=== PATIENT | female | born 1955 | race Caucasian/White ===

== ENCOUNTER 2021-08-05 00:24 | Inpatient (IN) | payer MEDICARE, OTHER ==
[~2021-08-05] VITALS: Ht 152.4 cm; Wt 40.8 kg
--- NOTE | 2021-08-05 00:50 | NUR ---
TO ER BED 1. ALFIE FROM [facility] ON 5150 FOR GD AND DTO. NEEDS MED CLEARANCE. PT DENIES ANY CHEST PAIN OR SOB.
--- NOTE | 2021-08-05 00:53 | NUR ---
COVID ANTIGEN SWAB COLLECTED AND SENT TO LAB
--- NOTE | 2021-08-05 01:05 | NUR ---
PLANT OPERATOR/SHIFT SUPERVISOR AT PT'S BEDSIDE
[2021-08-05 01:29] LABS: BASOPHILS % (AUTO) 0.4 % (0.0-2.0); EOSINOPHILS % (AUTO) 1.3 % (0.0-6.0); HEMATOCRIT 37 % (33-45); HEMOGLOBIN 12.6 g/dL (11.5-14.8); LYMPHOCYTES # (AUTO) 0.8 K/uL (0.8-4.8); LYMPHOCYTES % (AUTO) 13.3 % (20.0-44.0); MEAN CORPUSCULAR HGB CONC 34 g/dl (31.0-36.0); MEAN CORPUSCULAR VOLUME 85 fL (82-100); MONOCYTES # (AUTO) 0.3 K/uL (0.1-1.30); MONOCYTES % (AUTO) 4.8 % (2.0-12.0); NEUTROPHILS # (AUTO) 4.9 K/uL (1.8-8.9); NEUTROPHILS % (AUTO) 80.2 % (43.0-81.0); PLATELET COUNT (AUTO) 248 K/uL (150-450); WHITE BLOOD COUNT (AUTO) 6.1 K/uL (4.3-11.0)
[2021-08-05 01:49] LABS: CALCIUM, SERUM 8.7 mg/dL (8.5-10.1); CARBON DIOXIDE 27 mmol/L (21-32); CHLORIDE 105 mmol/L (98-107); CREATININE 0.5 mg/dL (0.6-1.3); GLUCOSE 156 mg/dL (74-106); POTASSIUM 3.5 mmol/L (3.5-5.1); SODIUM SERUM 138 mmol/L (136-145); UREA NITROGEN, BLOOD 20 mg/dL (7-18)
[2021-08-05 01:55] LABS: ALANINE AMINOTRANSFERASE 22 U/L (12-78); ALBUMIN 3.2 g/dL (3.4-5.0); ALCOHOL, BLOOD < 3 mg/dL (0-0); ALKALINE PHOSPHATASE 73 U/L (46-116); ASPARTATE AMINOTRANSFERASE 19 U/L (15-37); BILIRUBIN,DIRECT 0.1 mg/dL (0.0-0.2); BILIRUBIN,TOTAL 0.3 mg/dL (0.2-1.0); TOTAL PROTEIN, SERUM 7.9 g/dL (6.4-8.2)
[2021-08-05 01:56] LABS: ACETAMINOPHEN 0 ug/ml (10-30)
--- NOTE | 2021-08-05 01:56 | NUR ---
URINE SAMPLE COLLECTED AND SENT TO LAB
[2021-08-05 02:21] LABS: BILIRUBIN,URINE NEGATIVE (NEGATIVE); COLOR,URINE YELLOW (YELLOW); LEUKOCYTE ESTERASE ,URINE LARGE (NEGATIVE); NITRITE, URINE NEGATIVE (NEGATIVE); PH,URINE 8.5 (5.0-8.0); PROTEIN,URINE 100 mg/dl (NEGATIVE); UGLUCOSE NEGATIVE (NEGATIVE); UROBILINOGEN,URINE 0.2 EU/dL (0.2)
[2021-08-05] MEDS ORDERED: NITROFURANTOIN/MONOHYDRATE MACROCRYSTALS 100 MG CAPSULE PO ONE (02:30)
[2021-08-05] MEDS ORDERED: NITROFURANTOIN/MONOHYDRATE MACROCRYSTALS 100 MG CAPSULE ONE (02:32)
--- NOTE | 2021-08-05 02:45 | NUR ---
ASSIGNED TO 218-1
--- NOTE | 2021-08-05 03:40 | NUR ---
MRSA SWAB COLLECTED AND SENT TO LAB
--- NOTE | 2021-08-05 03:51 | NUR ---
Report given to Sendy donahue for [place]
[2021-08-05 04:30] VITALS: BP 138/71
[2021-08-05] MEDS ORDERED: TEMAZEPAM 7.5 MG CAPSULE PO PRN (05:30)
[2021-08-05] MEDS ORDERED: LORAZEPAM 0.5 MG TABLET PO PRN (05:30)
[2021-08-05] MEDS ORDERED: ACETAMINOPHEN 325 MG TABLET PO PRN (05:30)
[2021-08-05] MEDS ORDERED: MAG HYDROX/AL HYDROX/SIMETH 30 ML UDC PO PRN (05:30)
[2021-08-05] MEDS ORDERED: MAGNESIUM HYDROXIDE 30 ML UDC PO PRN (05:30)
[2021-08-05] MEDS ORDERED: BLOOD SUGAR DIAGNOSTIC 1 EACH STRIP IN ONE (05:30)
[2021-08-05] MEDS ORDERED: DOCU100T2 PO (05:54)
[2021-08-05] MEDS ORDERED: ASCO500C18 PO (05:59)
[2021-08-05] MEDS ORDERED: ZINC220C6 PO (05:59)
[2021-08-05] MEDS ORDERED: HYDR200T81 PO (05:59)
[2021-08-05] MEDS ORDERED: VITAMIN D TABLET PO (05:59)
[2021-08-05 06:25] LABS: BACTERIA,URINE 2+ /HPF (None Seen); RBC,URINE TOO NUMEROUS TO COUN /HPF (0-2); SQUAMOUS EPITHELIAL CELL,UR Few /HPF (None Seen); URINE AMORPHOUS URATE Moderate /HPF (None Seen); WBC,URINE TOO NUMEROUS TO COUN /HPF (0-3)
--- NOTE | 2021-08-05 06:30 | NUR ---
RN GPS ADMISSION NOTE: RECEIVED 66 YRS OLD FEMALE PATIENT FROM THE [facility] ER, ORIGINALLY FROM [facility]. ARRIVAL TIME 0415. PATIENT ADMITTED ON A 5150 HOLD FOR DANGER TO OTHERS, GRAVELY DISABLED. PER 5150 HOLD, PATIENT WAS TALKING NON STOP AND PATIENT REPORTED THAT SHE WAS UPSET AND AGITATED BECAUSE THEY CLOSED THE DOOR. PATIENT'S NURSE REPORTS PATIENT SPIT AT NURSE, THREW BOTTLE AT NURSE AND NOT COMPLAINT. PATIENT IS DIAGNOSED WITH DEPRESSION AND ON ATIVAN. UPON FACE TO FACE ASSESSMENT, PATIENT IS A & O X 2, CONFUSED, THIN/SKINNY, FORGETFUL, ANXIOUS, RESTLESS, EASILY AGITATED, NEEDY, DEMANDING, REPETITIVE, ATTENTIONS SEEKING EVEN WHEN NEEDS ARE MET. POOR HYGIENE, UNCOOPERATIVE WITH CARE, NON REDIRECTABLE AT TIMES. BED BOUND. INCONTINENT. NEEDS 1-2 PERSON ASSISTANCE WITH ADL CARE. PATIENT'S RESPIRATIONS APPEARED EVEN AND UNLABORED WITH NO SOB NOTED. PATIENT CURRENTLY DENIES ANY SUICIDAL IDEATION AND HOMICIDAL IDEATION AT THIS TIME. PATIENT ADVISED OF HOLD AND PATIENT'S RIGHT BOOKLET WAS GIVEN. PATIENTS BELONGINGS CHECKED FOR CONTRABAND. SKIN ASSESSMENT COMPLETED, PHOTOS WERE TAKEN. PATIENT REFUSED TO SIGN CONSENT FORMS. NON AMBULATORY DUE TO BILATERAL UPPER/LOWER EXTREMITIES DEFORMITIES. BUT ALLOWED STAFF TO DO VITAL SIGNS CHECKS, BLOOD SUGAR (WHICH WAS 101) AND FACE OF PHOTO WELL SKIN ASSESSMENT. PATIENT REFUSES COVID, FLU, OR PNA VACCINE. MSRA SWAB DONE IN ER. PATIENT EDUCATED LAMINATION MACHINE OPERATOR LIGHT. BED ALARM ON. SIDE RAILS UP X2 FOR SAFETY. BED LOCKED, LOW, WILL CONTINUE TO MONITOR Q15 MINUTES FOR SAFETY AND BEHAVIOR.
--- NOTE | 2021-08-05 06:56 | NUR ---
GPS RN NOTE: FAMILY NOTIFIED CALLED PATIENT'S SISTER CRISTINA PENA AT [phone] AND LEFT A VOICEMAIL REGARDING PATIENT'S ADMISSION AT [facility] GPS UNIT INCLUDING GPS UNIT PHONE NUMBER.
--- NOTE | 2021-08-05 07:19 | NUR ---
PATIENT'S SISTER CRISTINA CALLED BACK & UPDATED HER ABOUT PATIENT'S ADMISSION.
--- NOTE | 2021-08-05 07:20 | NUR ---
GPS RN NOTE PLANT PROTECTION GUARD BRIDGETTE WAS NOTIFIED ABOUT PATIENT'S ADMISSION AT [facility] GPS UNIT.
[2021-08-05] MEDS ORDERED: Z GUARD REMEDY 4 OZ OINT TP PRN (07:30)
[2021-08-05 08:00] VITALS: BP 130/82
[2021-08-05] MEDS: Z GUARD REMEDY 4 OZ OINT TP SCH (10:06)
[2021-08-05] MEDS: ESCITALOPRAM OXALATE (10 MG) 10 MG TABLET PO SCH ×2 (11:00→11:06)
--- NOTE | 2021-08-05 11:06 | NUR ---
Lauro Rodriguez MERCHANDISE WORKER in the unit and notified about the new admission and reminded to reconcile the meds and said yes.
--- NOTE | 2021-08-05 11:11 | NUR ---
Pt. refused to take the Lexapro , explained in the importance and still refusing and said she will take it she needs it. Amina MENDOZA made aware.
[2021-08-05] MEDS: ENSURE ENLIVE 237 ML LIQUID (VANILLA) PO SCH ×2 (11:52→17:06)
[2021-08-05 16:00] VITALS: BP 115/67
[2021-08-05] MEDS: DOCUSATE SODIUM 100 MG CAPSULE PO SCH (17:00)
[2021-08-05] MEDS: HYDROXYCHLOROQUINE 200 MG TABLET PO SCH (17:00)
[2021-08-05] MEDS ORDERED: Medication Not On Formulary EA (Docusate Sodium 1 TAB) PO SCH (17:00)
[2021-08-05] MEDS: NITROFURANTOIN/MONOHYDRATE MACROCRYSTALS 100 MG CAPSULE PO SCH (21:00)
--- NOTE | 2021-08-05 23:00 | NUR ---
GPS RN NOTES: PT REFUSED TO TAKE MACROBID PRESCRIBED BY PHYSICIAN FOR UTI. DESPITE EXPLAINING THE RISK AND COMPLICATIONS ASSOCIATED TO NON-MED COMPLIANCE, PT CONTINUES TO REFUSED. WILL CONTINUE TO MONITOR PT.
[2021-08-06 08:00] VITALS: BP 124/76
[2021-08-06] MEDS: ENSURE ENLIVE 237 ML LIQUID (VANILLA) PO SCH ×2 (08:08→16:02)
[2021-08-06] MEDS: DOCUSATE SODIUM 100 MG CAPSULE PO SCH ×2 (08:10→16:18)
[2021-08-06] MEDS: Z GUARD REMEDY 4 OZ OINT TP SCH (08:10)
[2021-08-06] MEDS: ESCITALOPRAM OXALATE (10 MG) 10 MG TABLET PO SCH (08:36)
[2021-08-06] MEDS: NITROFURANTOIN/MONOHYDRATE MACROCRYSTALS 100 MG CAPSULE PO SCH ×2 (08:36→21:00)
[2021-08-06] MEDS: ZINC SULFATE 220 MG CAPSULE PO SCH (08:37)
[2021-08-06] MEDS: ASCORBIC ACID 500 MG TABLET PO SCH (08:37)
[2021-08-06] MEDS: HYDROXYCHLOROQUINE 200 MG TABLET PO SCH ×2 (08:37→16:21)
--- NOTE | 2021-08-06 08:37 | NUR ---
RN-CO: PT REFUSED ALL HER MEDICATIONS, PT STATED " I DON'T BELONG HERE, THOSE CRAZY GUYS AND STUPID PEOPLE PUT ME HERE. " " I DON'T BELONG HERE."
[2021-08-06] MEDS ORDERED: Medication Not On Formulary EA (Zinc Sulfate (Zinc-220) 220 MG) PO SCH (09:00)
[2021-08-06] MEDS ORDERED: Medication Not On Formulary EA (Ascorbic Acid (Vitamin C) 1 CAP) PO SCH (09:00)
[2021-08-06] MEDS: HALOPERIDOL 1 MG TABLET PO SCH ×2 (11:00→16:18)
[2021-08-06 16:00] VITALS: BP 104/57
--- NOTE | 2021-08-06 16:18 | NUR ---
RN-CO: PATIENT IS SCREAMING, AGITATED , TALKING TO HERSELF. aTIVAN 0.5 MG OFFERD BUT PT REFUSED AND THREW IT ON THE FLOOR.
[2021-08-06 20:23] VITALS: BP 129/77
[2021-08-06] MEDS: MUPIROCIN OINT 2% 22 GM TUBE TP SCH (21:00)
--- NOTE | 2021-08-06 21:42 | NUR ---
GPS RN NOTES: MEDICATION REFUSAL PATIENT REFUSED HER SCHEDULED MEDS FOR 2100 MACROBID AND BACTROBAN OINT. DESPITE OF EDUCATION PROVIDED REGARDING MEDICATION COMPLIANCE PATIENT CONTINUED TO REFUSE. PATIENT STATED, "MY DOCTOR HAS TO COME AND TALK TO ME, I TRUST MY DOCTOR, I DON'T TRUST ANYBODY ELSE". WILL CONTINUE TO MONITOR.
[2021-08-07 08:00] VITALS: BP 135/61
[2021-08-07] MEDS: HYDROXYCHLOROQUINE 200 MG TABLET PO SCH ×2 (08:50→17:00)
[2021-08-07] MEDS: HALOPERIDOL 1 MG TABLET PO SCH ×2 (08:50→17:00)
[2021-08-07] MEDS: ASCORBIC ACID 500 MG TABLET PO SCH (08:50)
[2021-08-07] MEDS: DOCUSATE SODIUM 100 MG CAPSULE PO SCH ×2 (08:50→16:59)
[2021-08-07] MEDS: ESCITALOPRAM OXALATE (10 MG) 10 MG TABLET PO SCH (08:50)
[2021-08-07] MEDS: MUPIROCIN OINT 2% 22 GM TUBE TP SCH ×2 (08:50→21:00)
[2021-08-07] MEDS: NITROFURANTOIN/MONOHYDRATE MACROCRYSTALS 100 MG CAPSULE PO SCH ×2 (08:50→21:00)
[2021-08-07] MEDS: ZINC SULFATE 220 MG CAPSULE PO SCH (08:50)
[2021-08-07] MEDS: Z GUARD REMEDY 4 OZ OINT TP SCH (08:51)
[2021-08-07] MEDS: ENSURE ENLIVE 237 ML LIQUID (VANILLA) PO SCH ×2 (08:51→17:00)
--- NOTE | 2021-08-07 10:02 | NUR ---
CARON Initial Discharge Plan: Patient will return back to [facility] [address] [place] [address]; ([phone]). CARON spoke with Rj Nevarez ([phone]) who stated that pt can return back upon dc. CARON will work with the MD, treatment team, and family to help coordinate appropriate care.
--- NOTE | 2021-08-07 10:03 | NUR ---
SW Admit Source: Pt resides at [facility] and was aggressive at her facility and not taking any medications. She was placed on a 5150 hold for danger to others and GD. Patient will return back to [facility] [address] [place] [address]; ([phone]). CARON spoke with Rj Nevarez ([phone]) who stated that pt can return back upon dc.
[2021-08-07 16:00] VITALS: BP 117/79
[2021-08-07 20:00] VITALS: BP 134/77
--- NOTE | 2021-08-07 21:26 | NUR ---
GPS RN NOTE: MEDICATION REFUSAL PATIENT REFUSED MACROBID AND BACTROBAN X 3 ORDERED BY MD AT 2100. PATIENT IS UNCOOPERATIVE, HYPERVERBAL, BECAME ANXIOUS AND RESTLESS WHEN RISKS AND BENEFITS OF MEDICATION REFUSAL EXPLAINED, PATIENT KEPT REPEATING," HONEY, I DON'T TAKE ANY MEDICAINE AT NIGHT, I DON'T NEED ANY MEDICINE, I SHOULDN'T HAVE BEEN HERE, THOSE 2 EMPLOYEES ARE RESPONSIBLE FOR SENDING ME HERE." PATIENT IS UNCOOPERATIVE WITH MEDICATIONS. OFFERED A DIAPER CHANGE TO THE PATIENT WELL BUT PATIENT REFUSED X 3 AND STATED," NO, YOU DON'T NEED TO CHANGE MY DIAPER, I AM DRY, I WILL CALL YOU WHEN I NEED TO BE CHANGED." WILL ENCOURAGE PATIENT FOR GOOD HYGIENE, WILL CONTINUE TO MONITOR.
[2021-08-08 08:00] VITALS: BP 111/78
[2021-08-08] MEDS: ENSURE ENLIVE 237 ML LIQUID (VANILLA) PO SCH ×2 (08:00→17:00)
--- NOTE | 2021-08-08 08:38 | NUR ---
CARON Family Contact: CARON contacted pt's sister Heather ([phone]) and left a voicemail of pt's admission and treatment/discharge plan.
[2021-08-08] MEDS: HALOPERIDOL 1 MG TABLET PO SCH (08:51)
[2021-08-08] MEDS: DOCUSATE SODIUM 100 MG CAPSULE PO SCH ×2 (08:51→17:00)
[2021-08-08] MEDS: NITROFURANTOIN/MONOHYDRATE MACROCRYSTALS 100 MG CAPSULE PO SCH (08:51)
[2021-08-08] MEDS: ESCITALOPRAM OXALATE (10 MG) 10 MG TABLET PO SCH (08:51)
[2021-08-08] MEDS: HYDROXYCHLOROQUINE 200 MG TABLET PO SCH ×2 (08:52→17:00)
[2021-08-08] MEDS: ASCORBIC ACID 500 MG TABLET PO SCH (08:52)
[2021-08-08] MEDS: MUPIROCIN OINT 2% 22 GM TUBE TP SCH ×2 (08:52→21:00)
[2021-08-08] MEDS: ZINC SULFATE 220 MG CAPSULE PO SCH (08:52)
[2021-08-08] MEDS: Z GUARD REMEDY 4 OZ OINT TP SCH (08:52)
[2021-08-08 16:00] VITALS: BP 102/60
[2021-08-08] MEDS: risperiDONE 0.25 MG TABLET PO SCH (17:00)
[2021-08-08] MEDS: SULFAMETH/TRIMETH 800/160 MG 1 UDTAB TABLET PO SCH (17:00)
--- NOTE | 2021-08-08 21:32 | NUR ---
GPS RN NOTE: MEDICATION REFUSAL PATIENT REFUSED BACTROBAN X 3 ORDERED BY MD AT 2100. PATIENT IS UNCOOPERATIVE, HYPERVERBAL, BECOMES ANXIOUS AND RESTLESS WHEN RISKS AND BENEFITS OF MEDICATION REFUSAL EXPLAINED, PATIENT KEPT REPEATING," HONEY, I DON'T TAKE ANY MEDICAINE AT NIGHT, I DON'T NEED ANY MEDICINE, WILL CONTINUE TO MONITOR.
[2021-08-09 08:00] VITALS: BP 121/80
[2021-08-09] MEDS: ENSURE ENLIVE 237 ML LIQUID (VANILLA) PO SCH ×2 (08:00→16:24)
[2021-08-09] MEDS: HYDROXYCHLOROQUINE 200 MG TABLET PO SCH ×2 (08:09→16:25)
[2021-08-09] MEDS: risperiDONE 0.25 MG TABLET PO SCH ×2 (08:09→16:25)
[2021-08-09] MEDS: DOCUSATE SODIUM 100 MG CAPSULE PO SCH ×2 (08:09→16:24)
[2021-08-09] MEDS: ASCORBIC ACID 500 MG TABLET PO SCH (08:09)
[2021-08-09] MEDS: SULFAMETH/TRIMETH 800/160 MG 1 UDTAB TABLET PO SCH ×2 (08:09→16:24)
[2021-08-09] MEDS: Z GUARD REMEDY 4 OZ OINT TP SCH (08:10)
[2021-08-09] MEDS: MUPIROCIN OINT 2% 22 GM TUBE TP SCH ×2 (08:10→20:19)
[2021-08-09] MEDS: ZINC SULFATE 220 MG CAPSULE PO SCH (08:10)
--- NOTE | 2021-08-09 10:33 | NUR ---
WOUND CARE CONSULT: PT PRESENTS WITH LOWER LEG RAISED LESIONS/CRUSTS, PRESENT ON ADMISSION. DR RAMOS NOTIFIED OF DPM CONSULT REQUEST. IN AGREEMENT WITH PLAN OF CARE.
--- NOTE | 2021-08-09 12:49 | NUR ---
CARON Family Contact: CARON contacted pt's sister Heather ([phone]) and left a voicemail.
[2021-08-09 16:00] VITALS: BP 110/75
--- NOTE | 2021-08-09 17:25 | NUR ---
PATIENT REFUSED ALL MEDS AM AND PM . PATIENT IS UNCOOPERATIVE, HYPERVERBAL, BECAME ANXIOUS AND RESTLESS WHEN RISKS AND BENEFITS OF MEDICATION REFUSAL EXPLAINED, IMPORTANCE OF MEDICATION COMPLIANCE, THO WHICH PT STATED I DON'T TAKE ANY MEDICINE, I DON'T NEED ANY MEDICINE, I SHOULDN'T HAVE BEEN HERE, PATIENT IS UNCOOPERATIVE WITH MEDICATIONS. OFFERED TO TREAT LEFT LEG PER WOUND CARE ORDERS TO WHICH PT REFUSED. WILL CONTINUE TO MONITOR.
[2021-08-09 20:00] VITALS: BP 133/76
[2021-08-10 08:00] VITALS: BP 125/70
[2021-08-10] MEDS: ENSURE ENLIVE 237 ML LIQUID (VANILLA) PO SCH ×2 (08:00→17:00)
[2021-08-10] MEDS: MUPIROCIN OINT 2% 22 GM TUBE TP SCH ×2 (09:00→21:00)
[2021-08-10] MEDS: ASCORBIC ACID 500 MG TABLET PO SCH (09:00)
[2021-08-10] MEDS: ZINC SULFATE 220 MG CAPSULE PO SCH (09:00)
[2021-08-10] MEDS: DOCUSATE SODIUM 100 MG CAPSULE PO SCH ×2 (09:00→17:00)
[2021-08-10] MEDS: HYDROXYCHLOROQUINE 200 MG TABLET PO SCH ×2 (09:00→17:00)
[2021-08-10] MEDS: risperiDONE 0.25 MG TABLET PO SCH ×2 (09:00→17:00)
[2021-08-10] MEDS: SULFAMETH/TRIMETH 800/160 MG 1 UDTAB TABLET PO SCH ×2 (09:00→17:00)
--- NOTE | 2021-08-10 09:31 | NUR ---
CARON Family Contact: SW attempted to contact pt's sister Heather ([phone]) ([phone]) and left a voicemail to contact this global technical writer.
--- NOTE | 2021-08-10 09:52 | NUR ---
SW Note: SW attempted to discuss with pt of discharge plan and if she is able to provide information of family. Pt began to yell and stated "I do not want anyone to contact my family". She yelled stating do not contact any of my family members. SW attempted to explain pt situation and she was not understanding.
[2021-08-10] MEDS: Z GUARD REMEDY 4 OZ OINT TP SCH (10:19)
--- NOTE | 2021-08-10 13:31 | NUR ---
Pt. refused for wound dressing and doesn't want to apply ointment and said she doesn't want it to get worst.
--- NOTE | 2021-08-10 13:58 | NUR ---
Court Hearing: Patient's court hearing for 7510 was today and it was upheld for GD.
[2021-08-10 16:00] VITALS: BP 127/73
--- NOTE | 2021-08-10 21:30 | NUR ---
GPS RN NOTES: PATIENT REFUSED SCHEDULED BACTROBAN OINTMENT FOR 2100. DESPITE OF EDUCATION PROVIDED REGARDING MEDICATION COMPLIANCE PATIENT KEPT REPEATING, HONEY, "I DON'T TAKE ANY MEDICINE AT NIGHT, I DON'T NEED ANY MEDICINE". PATIENT CONTINUED TO REFUSE. WILL CONTINUE TO MONITOR.
[2021-08-11 08:00] VITALS: BP 127/76
[2021-08-11] MEDS: ENSURE ENLIVE 237 ML LIQUID (VANILLA) PO SCH ×2 (08:00→17:00)
[2021-08-11] MEDS: SULFAMETH/TRIMETH 800/160 MG 1 UDTAB TABLET PO SCH ×2 (08:26→17:00)
[2021-08-11] MEDS: DOCUSATE SODIUM 100 MG CAPSULE PO SCH ×2 (08:26→17:00)
[2021-08-11] MEDS: HYDROXYCHLOROQUINE 200 MG TABLET PO SCH ×2 (08:27→17:00)
[2021-08-11] MEDS: ZINC SULFATE 220 MG CAPSULE PO SCH (08:27)
[2021-08-11] MEDS: MUPIROCIN OINT 2% 22 GM TUBE TP SCH ×2 (08:27→21:00)
[2021-08-11] MEDS: ASCORBIC ACID 500 MG TABLET PO SCH (08:27)
[2021-08-11] MEDS: risperiDONE 0.25 MG TABLET PO SCH (08:27)
[2021-08-11] MEDS: Z GUARD REMEDY 4 OZ OINT TP SCH (08:45)
[2021-08-11] MEDS: risperiDONE-M 0.5 MG TAB.RAPDIS PO SCH ×2 (15:30→21:00)
[2021-08-11 16:00] VITALS: BP 112/76
[2021-08-11] MEDS: OLANZAPINE 10 MG VIAL IM PRN (16:50)
[2021-08-11 19:45] VITALS: BP 130/59
[2021-08-11 20:57] VITALS: BP 130/59
--- NOTE | 2021-08-11 21:22 | NUR ---
GPS RN NOTE: MEDICATION REFUSAL PATIENT REFUSED RISPERDAL TAB PO AND BACTROBAN OINTMENT SCHEDULED AT 2100 AND STATED," NO, I DON'T NEED IT." DESPITE OF RISKS AND BENEFITS EXPLANATIONS, PATIENT CONTINUED TO REFUSE MEDICATIONS. DR. JEFFERS NOTIFIED ABOUT PATIENT'S RISPERDAL PO REFUSAL SINCE PATIENT IS RIESED AND SUPPOSE TO GET ZYPREXA IM FOR EACH RISPERDAL PO REFUSAL. LAST ZYPREXA 3 MG IM WAS GIVEN AT 1650 TODAY AFTER PATIENT WAS RIESED AT 3 PM, DR. JEFFERS ORDERED TO SKIP ZYPREXA IM TONIGHT. WILL CONTINUE TO MONITOR THE PATIENT FOR ANY CHANGE OF CONDITION.
[2021-08-12 08:00] VITALS: BP 127/71
[2021-08-12] MEDS: ENSURE ENLIVE 237 ML LIQUID (VANILLA) PO SCH ×2 (08:00→17:00)
[2021-08-12] MEDS: risperiDONE-M 0.5 MG TAB.RAPDIS PO SCH ×2 (08:27→20:38)
[2021-08-12] MEDS: HYDROXYCHLOROQUINE 200 MG TABLET PO SCH ×2 (08:27→17:00)
[2021-08-12] MEDS: ASCORBIC ACID 500 MG TABLET PO SCH (08:27)
[2021-08-12] MEDS: SULFAMETH/TRIMETH 800/160 MG 1 UDTAB TABLET PO SCH ×2 (08:27→17:00)
[2021-08-12] MEDS: DOCUSATE SODIUM 100 MG CAPSULE PO SCH ×2 (08:27→17:00)
[2021-08-12] MEDS: ZINC SULFATE 220 MG CAPSULE PO SCH (08:27)
[2021-08-12] MEDS: Z GUARD REMEDY 4 OZ OINT TP SCH (08:28)
[2021-08-12] MEDS: OLANZAPINE 10 MG VIAL IM PRN (08:30)
[2021-08-12 16:00] VITALS: BP 144/80
[2021-08-12 20:00] VITALS: BP 134/80
[2021-08-12 21:10] VITALS: BP 134/80
[2021-08-13 08:00] VITALS: BP 125/71
[2021-08-13] MEDS: ENSURE ENLIVE 237 ML LIQUID (VANILLA) PO SCH ×2 (08:12→16:33)
[2021-08-13] MEDS: ASCORBIC ACID 500 MG TABLET PO SCH ×2 (08:28→09:00)
[2021-08-13] MEDS: ZINC SULFATE 220 MG CAPSULE PO SCH ×2 (08:28→09:00)
[2021-08-13] MEDS: risperiDONE-M 0.5 MG TAB.RAPDIS PO SCH ×2 (08:28→21:00)
[2021-08-13] MEDS: Z GUARD REMEDY 4 OZ OINT TP SCH (08:29)
[2021-08-13] MEDS: DOCUSATE SODIUM 100 MG CAPSULE PO SCH ×3 (08:29→16:33)
[2021-08-13] MEDS: HYDROXYCHLOROQUINE 200 MG TABLET PO SCH ×2 (08:31→16:33)
[2021-08-13] MEDS: SULFAMETH/TRIMETH 800/160 MG 1 UDTAB TABLET PO SCH ×2 (08:31→09:00)
--- NOTE | 2021-08-13 09:10 | NUR ---
GPS MED REFUSAL NOTE PT REFUSED ALL MEDS EXCEPT FOR RISPERDAL DUE AT 0900. PT STATED "I DON'T WANT THOSE MEDS, BUT ILL TAKE THIS ONE," REFERRING TO THE RISPERDAL.
[2021-08-13 16:00] VITALS: BP 112/59
[2021-08-13 20:57] VITALS: BP 129/71
[2021-08-14] MEDS: ENSURE ENLIVE 237 ML LIQUID (VANILLA) PO SCH ×2 (07:57→17:09)
[2021-08-14 08:00] VITALS: BP 110/68
[2021-08-14] MEDS: risperiDONE-M 0.5 MG TAB.RAPDIS PO SCH ×2 (08:35→20:57)
[2021-08-14] MEDS: ASCORBIC ACID 500 MG TABLET PO SCH (08:39)
[2021-08-14] MEDS: HYDROXYCHLOROQUINE 200 MG TABLET PO SCH ×3 (08:39→17:10)
[2021-08-14] MEDS: Z GUARD REMEDY 4 OZ OINT TP SCH (08:39)
[2021-08-14] MEDS: DOCUSATE SODIUM 100 MG CAPSULE PO SCH ×3 (08:39→16:16)
[2021-08-14] MEDS: ZINC SULFATE 220 MG CAPSULE PO SCH (08:39)
--- NOTE | 2021-08-14 11:08 | NUR ---
Seen by Dr. Bella with new medication orders carried out by , no apparent distress at this time, no suicidal or homicidal ideation, will monitor closely for safety and behavior.
[2021-08-14] MEDS: FLUOXETINE HCL 20 MG CAPSULE PO SCH (12:14)
--- NOTE | 2021-08-14 13:24 | NUR ---
CARON Individual Therapy: SW attempted to conduct therapy. Pt stated "nothing is wrong with me and I do not belong here". SW unable to conduct therapy at this time.
[2021-08-14 16:00] VITALS: BP 113/75
--- NOTE | 2021-08-14 17:17 | NUR ---
Patient preferred to take only her psyche medications (Risperidone and Fluoxetine), health teaching regarding the rest of patients routine medications done, risks and benefits explained to patient thrice but still patient strongly refused to take the rest of her medications, respected patients wishes. Patient also preferred not to have her left leg wrap with Kerlix, but agreed to have Bactroban applied and just covered with dry dressing, per patient she feels like it depressing to see gauze wrapped on her legs and does not want the tape to irritate her skin, explained risks and benefits thrice, health teaching provided but patient strongly refused to wrap extremity with Kerlix, respected patient's wishes. No apparent distress at this time, remained afebrile, all needs anticipated, kept clean and dry, safety precautions in place, frequent visual check rendered, will monitor closely for behavior and safety.
[2021-08-14 20:00] VITALS: BP 139/83
[2021-08-15] MEDS: ENSURE ENLIVE 237 ML LIQUID (VANILLA) PO SCH ×2 (07:52→17:00)
[2021-08-15 08:00] VITALS: BP 117/64
[2021-08-15] MEDS: ASCORBIC ACID 500 MG TABLET PO SCH (08:18)
[2021-08-15] MEDS: ZINC SULFATE 220 MG CAPSULE PO SCH (08:18)
[2021-08-15] MEDS: DOCUSATE SODIUM 100 MG CAPSULE PO SCH ×2 (08:18→17:00)
[2021-08-15] MEDS: risperiDONE-M 0.5 MG TAB.RAPDIS PO SCH ×2 (08:18→21:00)
[2021-08-15] MEDS: HYDROXYCHLOROQUINE 200 MG TABLET PO SCH ×2 (08:18→17:00)
[2021-08-15] MEDS: Z GUARD REMEDY 4 OZ OINT TP SCH (08:19)
[2021-08-15] MEDS: FLUOXETINE HCL 20 MG CAPSULE PO SCH (13:00)
[2021-08-15 16:00] VITALS: BP 119/68
[2021-08-15 20:00] VITALS: BP 123/70
[2021-08-16] MEDS: ENSURE ENLIVE 237 ML LIQUID (VANILLA) PO SCH ×2 (07:55→16:22)
[2021-08-16] MEDS: ZINC SULFATE 220 MG CAPSULE PO SCH (08:04)
[2021-08-16] MEDS: ASCORBIC ACID 500 MG TABLET PO SCH (08:04)
[2021-08-16] MEDS: HYDROXYCHLOROQUINE 200 MG TABLET PO SCH ×2 (08:04→16:22)
[2021-08-16] MEDS: risperiDONE-M 0.5 MG TAB.RAPDIS PO SCH ×2 (08:04→20:18)
[2021-08-16] MEDS: DOCUSATE SODIUM 100 MG CAPSULE PO SCH ×2 (08:04→16:22)
[2021-08-16] MEDS: Z GUARD REMEDY 4 OZ OINT TP SCH (08:05)
[2021-08-16 16:00] VITALS: BP 103/58
--- NOTE | 2021-08-16 17:45 | NUR ---
PT REFUSED ALL MEDS WITH EXCEPTION TO RESPIRDAL. PT ALSO REFUSED WOUND CARE. NO ACUTE DISTRESS NOTED. WILL ENDORSE TO NOC SHIFT ACCORDINGLY.
[2021-08-17 07:30] VITALS: BP 134/88
[2021-08-17] MEDS: ENSURE ENLIVE 237 ML LIQUID (VANILLA) PO SCH ×2 (07:59→16:25)
[2021-08-17 08:00] VITALS: BP 107/63
[2021-08-17] MEDS: Z GUARD REMEDY 4 OZ OINT TP SCH (08:01)
[2021-08-17] MEDS: ASCORBIC ACID 500 MG TABLET PO SCH (08:02)
[2021-08-17] MEDS: DOCUSATE SODIUM 100 MG CAPSULE PO SCH ×2 (08:02→16:09)
[2021-08-17] MEDS: ZINC SULFATE 220 MG CAPSULE PO SCH (08:02)
[2021-08-17] MEDS: HYDROXYCHLOROQUINE 200 MG TABLET PO SCH ×2 (08:02→16:09)
[2021-08-17] MEDS: risperiDONE-M 0.5 MG TAB.RAPDIS PO SCH ×2 (09:05→20:22)
[2021-08-17] MEDS: clonazePAM 0.5 MG TABLET PO SCH ×2 (14:00→16:09)
[2021-08-17 15:47] VITALS: BP 107/63
--- NOTE | 2021-08-17 16:25 | NUR ---
RN-CO: PT REMAINS SUSPICIOUS, ONLY TOOK RISPERDAL PO WITH ENCOURAGEMENT BECAUSE SHE DOES NOT BELIEVE THAT SHE HAS A MENTAL PROBLEM. SHE REFUSED ALL OTHER MEDICATIONS. UNCOOPERATIVE TO CARE AND LABILE.
--- NOTE | 2021-08-17 16:43 | NUR ---
RN-CO: PT REFUSED WOUND CARE INSPITE OF ENCOURAGEMENT.
[2021-08-17 20:00] VITALS: BP 124/75
--- NOTE | 2021-08-17 22:30 | NUR ---
Pt took her 2099 medications- but refused pm/ ernie -care at this time , per pt- "I am still clean and dry- I will call if I needed to be cleaned". 2229: Noted pt comfortably sleeping in bed, no s/sx of acute distress, will cont to monitor and anticipate needs.
--- NOTE | 2021-08-18 06:37 | NUR ---
Pt slept total of 8 hrs last night, -no significant change of condition noted during shift, awake- no s/sx of acute distress noted , tolerated meds, pt allowed female nurse only to provide her am care- good ernie- care provided , tolerated well by pt , safety side rails up x 2 , bed lock and at lowest position for safety measures. Pt verbalized she's comfortable. Will endorse care to oncoming nurse.
--- NOTE | 2021-08-18 06:59 | NUR ---
Reviewed pt's intake and output - noted last BM recorded was on 08/11/21, I asked pt if she recalls when her last BM - pt verbalized "I had bowel movement yesterday during the day- I am sure I had 1 ", pt also denies any abd pain or discomfort, abdomen soft, non- tender, charge nurse Jan made aware.
[2021-08-18 08:00] VITALS: BP 132/73
[2021-08-18] MEDS: ENSURE ENLIVE 237 ML LIQUID (VANILLA) PO SCH ×2 (08:33→17:04)
[2021-08-18] MEDS: DOCUSATE SODIUM 100 MG CAPSULE PO SCH ×2 (09:00→16:52)
[2021-08-18] MEDS: risperiDONE-M 0.5 MG TAB.RAPDIS PO SCH ×2 (09:09→20:46)
[2021-08-18] MEDS: clonazePAM 0.5 MG TABLET PO SCH ×3 (09:19→16:52)
[2021-08-18] MEDS: HYDROXYCHLOROQUINE 200 MG TABLET PO SCH ×2 (09:19→16:52)
[2021-08-18] MEDS: ASCORBIC ACID 500 MG TABLET PO SCH (09:19)
[2021-08-18] MEDS: ZINC SULFATE 220 MG CAPSULE PO SCH (09:19)
[2021-08-18] MEDS: Z GUARD REMEDY 4 OZ OINT TP SCH (10:19)
[2021-08-18] MEDS ORDERED: OLANZAPINE 10 MG VIAL IM PRN (12:00)
[2021-08-18 16:00] VITALS: BP 125/70
--- NOTE | 2021-08-18 17:21 | NUR ---
RN NOTES CLONAZEPAM 0.5 MG TABLET WASTED, PATIENT REFUSED MED.
--- NOTE | 2021-08-18 19:33 | NUR ---
RN OPENING NOTE PATIENT IN BED AWAKE, EATING A SNACK. PATIENT ABLE TO MAKE NEEDS KNOWN. PATIENT IS NOT IN ANY APPARENT DISTRESS. 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 PATIENT IS A/O X 1-2. PATIENT ON RA, TOLERATING WELL, NO SOB NOTED, BREATHING EVEN AND UNLABORED. NEEDS REORIENTATION. SAFETY MEASURES IMPLEMENTED. BED LOCKED AND IN LOWEST POSITION, SIDE RAILS UP, BED ALARM ON. WILL MONITOR PATIENT CLOSELY.
[2021-08-18 20:02] VITALS: BP 119/72
--- NOTE | 2021-08-18 21:19 | NUR ---
RN NOTE PATIENT SUCCESSFULLY TOOK RISPERDAL 3 MG WITH A LOT OF ENCOURAGEMENT
[2021-08-19 08:00] VITALS: BP 129/76
[2021-08-19] MEDS: ENSURE ENLIVE 237 ML LIQUID (VANILLA) PO SCH ×2 (08:33→17:33)
[2021-08-19] MEDS: risperiDONE-M 0.5 MG TAB.RAPDIS PO SCH ×2 (08:36→20:05)
[2021-08-19] MEDS: clonazePAM 0.5 MG TABLET PO SCH ×3 (08:36→17:33)
[2021-08-19] MEDS: HYDROXYCHLOROQUINE 200 MG TABLET PO SCH ×2 (08:47→17:00)
[2021-08-19] MEDS: DOCUSATE SODIUM 100 MG CAPSULE PO SCH ×2 (08:47→17:00)
[2021-08-19] MEDS: ZINC SULFATE 220 MG CAPSULE PO SCH (08:48)
[2021-08-19] MEDS: Z GUARD REMEDY 4 OZ OINT TP SCH (08:48)
[2021-08-19] MEDS: ASCORBIC ACID 500 MG TABLET PO SCH (08:48)
[2021-08-19 16:00] VITALS: BP 114/70
[2021-08-19 20:06] VITALS: BP 108/74
[2021-08-20 08:00] VITALS: BP 137/75
[2021-08-20] MEDS: ZINC SULFATE 220 MG CAPSULE PO SCH (08:04)
[2021-08-20] MEDS: ENSURE ENLIVE 237 ML LIQUID (VANILLA) PO SCH ×2 (08:04→17:23)
[2021-08-20] MEDS: ASCORBIC ACID 500 MG TABLET PO SCH (08:04)
[2021-08-20] MEDS: clonazePAM 0.5 MG TABLET PO SCH ×3 (08:04→17:23)
[2021-08-20] MEDS: DOCUSATE SODIUM 100 MG CAPSULE PO SCH ×2 (08:04→16:45)
[2021-08-20] MEDS: HYDROXYCHLOROQUINE 200 MG TABLET PO SCH ×2 (08:04→16:45)
[2021-08-20] MEDS: risperiDONE-M 0.5 MG TAB.RAPDIS PO SCH ×2 (08:04→21:16)
[2021-08-20] MEDS: Z GUARD REMEDY 4 OZ OINT TP SCH (08:05)
[2021-08-20 16:00] VITALS: BP 124/66
[2021-08-20 19:55] VITALS: BP 117/70
[2021-08-20 21:01] VITALS: BP 117/70
--- NOTE | 2021-08-20 22:59 | NUR ---
GPS RN NOTE: REFUSED WEEKLY SKIN ASSESSMENT PATIENT REFUSED WEEKLY SKIN ASSESSMENT X 3, UNCOOPERATIVE, EASILY IRRITABLE AND ANXIOUS/RESTLESS. PATIENT CONTINUED TO REFUSE SKIN ASSESSMENT DESPITE OF RISKS AND BENEFITS EXPLANATIONS.
[2021-08-21 08:00] VITALS: BP 150/73
[2021-08-21] MEDS: ENSURE ENLIVE 237 ML LIQUID (VANILLA) PO SCH ×2 (08:00→17:00)
[2021-08-21] MEDS: clonazePAM 0.5 MG TABLET PO SCH ×3 (09:00→17:00)
[2021-08-21] MEDS: HYDROXYCHLOROQUINE 200 MG TABLET PO SCH ×2 (09:00→17:00)
[2021-08-21] MEDS: ASCORBIC ACID 500 MG TABLET PO SCH (09:00)
[2021-08-21] MEDS: DOCUSATE SODIUM 100 MG CAPSULE PO SCH ×2 (09:00→17:00)
[2021-08-21] MEDS: ZINC SULFATE 220 MG CAPSULE PO SCH (09:00)
--- NOTE | 2021-08-21 09:15 | NUR ---
PT REFUSED WOUND CARE TREATMENT.
[2021-08-21] MEDS: risperiDONE-M 0.5 MG TAB.RAPDIS PO SCH ×2 (09:24→21:17)
[2021-08-21] MEDS: Z GUARD REMEDY 4 OZ OINT TP SCH (09:26)
[2021-08-21] MEDS ORDERED: OLANZAPINE 10 MG VIAL IM PRN (13:00)
[2021-08-21 16:00] VITALS: BP 118/67
--- NOTE | 2021-08-21 18:00 | NUR ---
PT REFUSED MEDS. AND WOUND CARE TX. DR JEFFERS AWARE.
[2021-08-21 20:00] VITALS: BP 120/66
[2021-08-22 08:00] VITALS: BP 110/67
[2021-08-22] MEDS: ENSURE ENLIVE 237 ML LIQUID (VANILLA) PO SCH ×2 (08:00→17:00)
[2021-08-22] MEDS: DOCUSATE SODIUM 100 MG CAPSULE PO SCH ×4 (09:00→17:00)
[2021-08-22] MEDS: ZINC SULFATE 220 MG CAPSULE PO SCH ×2 (09:00→09:18)
[2021-08-22] MEDS: ASCORBIC ACID 500 MG TABLET PO SCH ×2 (09:00→09:19)
[2021-08-22] MEDS: HYDROXYCHLOROQUINE 200 MG TABLET PO SCH ×3 (09:00→17:00)
[2021-08-22] MEDS: risperiDONE-M 0.5 MG TAB.RAPDIS PO SCH ×2 (09:18→21:20)
[2021-08-22] MEDS: clonazePAM 0.5 MG TABLET PO SCH ×3 (09:19→17:46)
--- NOTE | 2021-08-22 10:00 | NUR ---
Offered patient with showered ,patient refused will continue to monitor .
[2021-08-22] MEDS: Z GUARD REMEDY 4 OZ OINT TP SCH (15:38)
[2021-08-22 16:00] VITALS: BP 105/59
--- NOTE | 2021-08-22 18:00 | NUR ---
TAKING RISPERDAL,AND SELECTIVE ABOUT OTHER MEDS.
[2021-08-22 20:00] VITALS: BP 101/58
[2021-08-23 08:00] VITALS: BP 122/63
[2021-08-23] MEDS: ENSURE ENLIVE 237 ML LIQUID (VANILLA) PO SCH ×2 (08:28→17:25)
[2021-08-23] MEDS: ASCORBIC ACID 500 MG TABLET PO SCH (09:25)
[2021-08-23] MEDS: DOCUSATE SODIUM 100 MG CAPSULE PO SCH ×2 (09:25→16:35)
[2021-08-23] MEDS: HYDROXYCHLOROQUINE 200 MG TABLET PO SCH ×2 (09:25→16:35)
[2021-08-23] MEDS: ZINC SULFATE 220 MG CAPSULE PO SCH (09:25)
[2021-08-23] MEDS: Z GUARD REMEDY 4 OZ OINT TP SCH (09:28)
[2021-08-23] MEDS: clonazePAM 0.5 MG TABLET PO SCH ×3 (09:45→16:35)
[2021-08-23] MEDS: risperiDONE-M 0.5 MG TAB.RAPDIS PO SCH ×2 (11:16→21:07)
--- NOTE | 2021-08-23 12:42 | NUR ---
CARON SN[facility] CONTACT: CARON spoke with Jessie fitness coordinator from [facility] and stated pt will be discharged 08/24 and is welcoming pt back.
--- NOTE | 2021-08-23 12:44 | NUR ---
CARON Family Contact: SW attempted to contact pt's sister Heather ([phone]) ([phone]) and left a voicemail to contact this insurance writer of pt's discharge back to [facility] on 08/24.
--- NOTE | 2021-08-23 14:00 | NUR ---
RN NOTES PATIENT REFUSED TO GIVE URINE SAMPLE FOR URINALYSIS. EDUCATE AND ENCOURAGE THE PATIENT, STILL REFUSING.
[2021-08-23 16:00] VITALS: BP 115/61
--- NOTE | 2021-08-23 16:30 | NUR ---
Offered shower to patient ,patient refused ,will continue to monitor and encourage patient .
[2021-08-23 20:00] VITALS: BP 113/66
[2021-08-24 08:00] VITALS: BP 113/71
--- NOTE | 2021-08-24 08:39 | NUR ---
CARON Discharge Note: Patient will return back to [facility] located [address] [place] [address]; ([phone]). Please arrange transportation at 1PM. CARON spoke with Rj Nevarez ([phone]) who stated that pt can return back today. Pts sister Heather ([phone]) is aware and agreeable of dc. Pt is alert and oriented x2. Pt denies suicidal or homicidal ideation. Pt denies visual/auditory hallucination. Patient will continue to follow-up with (psychiatrist) Dr. Choi [address] [facility] [address], [place] [address]; ([phone]) and will follow up with (Structural Analysis Engineer) Dr. Montano [address] [facility] [address], [place] [address]; ([phone]). Pt presents with euthymic mood and congruent affect.
[2021-08-24] MEDS: DOCUSATE SODIUM 100 MG CAPSULE PO SCH (10:15)
[2021-08-24] MEDS: ASCORBIC ACID 500 MG TABLET PO SCH (10:16)
[2021-08-24] MEDS: ZINC SULFATE 220 MG CAPSULE PO SCH (10:16)
[2021-08-24] MEDS: clonazePAM 0.5 MG TABLET PO SCH ×2 (10:16→14:11)
[2021-08-24] MEDS: ENSURE ENLIVE 237 ML LIQUID (VANILLA) PO SCH (10:16)
[2021-08-24] MEDS: HYDROXYCHLOROQUINE 200 MG TABLET PO SCH (10:16)
[2021-08-24] MEDS: risperiDONE-M 0.5 MG TAB.RAPDIS PO SCH (10:16)
[2021-08-24] MEDS: Z GUARD REMEDY 4 OZ OINT TP SCH (10:17)
--- NOTE | 2021-08-24 15:20 | NUR ---
GRAPHIC EDITOR NOTES PATIENT DISCHARGE AT THIS TIME GOING BACK TO [facility].PATIENT A/OX3, STABLE NO ACUTE RESPIRATORY DISTRESS. COOPERATIVE. MED RECONCILIATION AND DISCHARGE ORDER REVIEWED AND EXPLAINED TO THE PATIENT , RN, AND AMBULANCE PERSONNEL. PATIENT REFUSED PICTURE TO BE TAKEN. PATIENT REFUSED SI/HI/AVH AT THIS TIME. BELONGING RETURNED TO THE PATIENT,PATIENT SIGN PAPERWORK. FAMILY AWARE OF DISCHARGE PLANING. PATIENT ASSET PROTECTION AGENT VIA AMBULANCE. PAPERWORK, AND CELL PHONE HANDED TO THE AMBULANCE PERSONNELS.
--- NOTE | 2021-08-24 15:23 | NUR ---
[facility] CONTACT: SW SPOKE WITH STEPHANIE RN ) FROM [facility] WHO STATED THAT PT'S ASSIGNED NURSE IS ON LUNCH BUT STATED PT CAN COME AND NURSING REPORT CAN BE GIVEN LATER WHEN RN IS BACK FROM LUNCH.
== END 2021-08-24 15:30 | DRG 885 ==
LOC: ER 00:35 → GPS 02:52
PROVIDERS: ADMIT Nurse Practitioner Psychiatric/Mental Health; ATTEND Nurse Practitioner Family
DX: F25.9 Schizoaffective disorder, unspecified (principal); E44.1 Mild protein-calorie malnutrition; N39.0 Urinary tract infection, site not specified; Z68.1 Body mass index [BMI] 19.9 or less, adult; L97.828 Non-pressure chronic ulcer of other part of left lower leg with other specified severity; F32.9 Major depressive disorder, single episode, unspecified; M19.90 Unspecified osteoarthritis, unspecified site; Z20.822 Contact with and (suspected) exposure to COVID-19; M06.9 Rheumatoid arthritis, unspecified; F41.9 Anxiety disorder, unspecified; E88.09 Other disorders of plasma-protein metabolism, not elsewhere classified; I73.9 Peripheral vascular disease, unspecified; R73.9 Hyperglycemia, unspecified; Z73.6 Limitation of activities due to disability; F29 Unspecified psychosis not due to a substance or known physiological condition; F60.9 Personality disorder, unspecified; F42.3 Hoarding disorder; Z91.19 Patient's noncompliance with other medical treatment and regimen; I83.028 Varicose veins of left lower extremity with ulcer other part of lower leg; M20.42 Other hammer toe(s) (acquired), left foot; B96.4 Proteus (mirabilis) (morganii) as the cause of diseases classified elsewhere
CPT/HCPCS: 36415; 80048-TC; 80076-TC; 81001; 82962-TC; 85025-TC; 87081-TC; 87086-TC; 87186-TC; C9803; G0480; J3490